=== PATIENT | female | born 1970 | race Caucasian/White ===

== ENCOUNTER 2025-05-02 10:46 | Emergency (ER) | payer BC, SELFPAY ==
[2025-05-02 10:52] VITALS: BP 155/94
[2025-05-02 11:05] LABS: % Basophils 0.6 % (0-2); % Immature Granulocytes 0.5 % (0-0.5); % Lymphocytes 27.3 % (20.5-51.1); % Monocytes 5.8 % (1.7-9.3); % Neutrophils 63.8 % (42.2-75.2); Absolute Eosinophils 0.1 10^3/uL (0-0.7); Absolute Lymphocytes 1.8 10^3/uL (1.2-3.4); Absolute Monocytes 0.4 10^3/uL (0.1-0.6); Absolute Neutrophils 4.2 10^3/uL (1.4-6.5); Hematocrit 39.8 % (37.0-47.0); Hemoglobin 13.2 g/dL (12.0-16.0); Mean Corp Hgb Conc. 33.2 g/dL (33.0-37.0); Mean Corpuscular Hgb 30.2 pg (27.0-31.0); Mean Corpuscular Volume 91.1 fL (81.0-99.0); Mean Platelet Volume 11.2 fL (7.4-10.4); Nucleated Red Blood Cells % 0 %; Platelet Count 222 10^3/uL (130-400); Red Blood Cell Count 4.37 10^6/uL (4.20-5.40); Red Cell Dist. Width 13.2 % (11.5-14.5); White Blood Cell Count 6.5 10^3/uL (4.8-10.8)
[2025-05-02 11:23] LABS: ALT (SGPT) 32 U/L (0-35); AST (SGOT) 19 U/L (14-36); Albumin 4.4 g/dl (3.5-5.0); Alkaline Phosphatase 63 U/L (38-126); Blood Urea Nitrogen 16 mg/dl (7-17); Calcium 9.5 mg/dl (8.4-10.2); Carbon Dioxide 28 mmol/L (22-30); Chloride 110 mmol/L (98-107); Glucose 121 mg/dl (70-99); Potassium 4.1 mmol/L (3.5-5.1); Sodium 144 mmol/L (135-145); Total Bilirubin 0.6 mg/dl (0.2-1.3); Total Protein 7.4 g/dl (6.3-8.2); eGFR > 60.00
[2025-05-02 11:35] LABS: Troponin I < 0.012 ng/ml
--- NOTE | 2025-05-02 11:45 | ED.GENMED ---
History of Present Illness
General
Chief Complaint: Chest Pain
Source: patient
Exam Limitations: none
Time Seen by Provider: 05/02/25 11:44
Nursing documentation reviewed up to this point in time: agreed with
History of Present Illness
History of Present Illness:
54-year-old female with no clinically significant past medical history presents for intermittent fleeting left upper chest pains since yesterday morning. It is not there now. It is fleeting and lasts for only seconds. No associated symptoms such
as lightheadedness, shortness of breath, sweating, nausea. No significant family history of cardiac disease
Past History
Past History
ED Past Medical History: None
ED Past Surgical History: Gynecological
Social History
Tobacco: Non-smoker
Alcohol: Occasional
Personal:
Living: with family
Employment: Employed
Review of Systems
Review of Systems
Allergies reviewed?: Yes
All Other Systems: ROS reviewed and negative except as documented in HPI and ROS
Constitutional: Denies fever or fatigue
Respiratory: Denies cough or trouble breathing
Cardiac: Reports chest pain; Denies diaphoresis or palpitations
ABD/GI: Denies abdominal pain, nausea, vomiting or diarrhea
: Denies dysuria
Musculoskeletal: Reports no symptoms
Skin: Reports no symptoms
Neurological: Reports no symptoms
Phy Exam
Physical Exam
Physical Exam:
GENERAL: No acute distress. A&Ox3.
CONSTITUTIONAL: Afebrile.
EYES: clear, conjunctivae normal
ENMT: moist mucus membranes, Pharynx nl
RESPIRATORY: Regular respirations, nonlabored, lungs clear.
CARDIOVASCULAR: Regular rate and rhythm, no murmurs, no rubs.
GI: Soft, nontender, normal BS
MUSCULOSKELETAL: Unable to reproduce pain with palpation. Moves with ease. Well perfused.
SKIN: Warm, dry, pink
PSYCH: Normal mood and affect. Well kept, interactive and appropriate
NEUROLOGIC: Awake, alert and oriented. No focal neurological deficits
Scores
Heart Score for Chest Pain Patients
STEMI patient?: Not applicable
Course
Orders/Labs/Results
Orders:
Orders
05/02/25 10:46
EKG [Electrocardiogram (*1)] Urgent
Reason for Study: Chest Pain
05/02/25 10:47
EKG- Treatment ONCE
05/02/25 10:57
Complete Blood Count/With Diff Urgent
Comprehensive Metabolic Panel Urgent
Troponin I Urgent
05/02/25 11:56
CR Chest - 2 Views Urgent
Comment:
Reason For Exam: chest pain
Abnormal Lab Results
05/02/25
10:57
MPV 11.2 H fL
(7.4-10.4)
Chloride 110 H mmol/L
(98-107)
Glucose 121 H mg/dl
(70-99)
05/02/25 10:57
05/02/25 10:57
Vital Signs
Initial and Last Documented VS:
Initial Vital Signs
Temp Pulse Resp BP Pulse Ox
98.5 F 84 18 155/94 100
05/02/25 10:52 05/02/25 10:52 05/02/25 10:52 05/02/25 10:52 05/02/25 10:52
Last Documented Vital Signs
Temp Pulse Resp BP Pulse Ox
98.5 F 75 13 141/76 98
05/02/25 10:52 05/02/25 12:45 05/02/25 12:30 05/02/25 12:04 05/02/25 12:45
MDM/Problems Addressed
Differential Diagnosis Includes:
Musculoskeletal pain, pleuritis, ACS
MDM/Problems Addressed:
54-year-old female with no clinically significant past medical history presents for intermittent fleeting left upper chest pains since yesterday morning. It is not there now. It is fleeting and lasts for only seconds. No associated symptoms such
as lightheadedness, shortness of breath, sweating, nausea. No significant family history of cardiac disease
12:00 PM:
CBC normal
CMP normal
Troponin normal
EKG NSR
No indication of cardiac etiology of pain. I will send her information to the cardiac hotline
CXR: NAD
*Radiology
Radiology exam reviewed: preliminary read by ED provider (MIKE)
*EKG
Interpreted by ED Provider?: Yes
EKG Intrepretation Date: 05/02/25
Interpretation: normal
Heart Rate: 77
Rate: normal
Rhythm: sinus
Odin: normal axis
Interval: normal interval
QRS Pattern: normal QRS
Ischemia: no ischemia
*Critical Care Note
Total Time (30-74mins, 75-104mins- exclusive of procedures): Not Applicable
ED Attending Note
-
Portions of this chart may have been created with voice recognition software.� Occasional wrong word or��sound alike� substitutions may have occurred due to the inherent limitations of voice recognition software.
Discharge Plan
Departure
Patient Disposition: Home (Routine Discharge)
Date of Disposition: 05/02/25
Time of Disposition: 12:58
Patient with high blood pressure during this ER visit?: No
Condition: Good
Discharge Problem:
Atypical chest pain
Instructions: Chest Pain That Is Not Caused by the Heart (DC), Chest Pain CBC Follow Up
Referrals:
Emilia Nguyen DO [Family Provider, Internal Medicine]
Activity Restrictions/Additional Instructions:
As we discussed, nothing worrisome in your workup here today.
Someone from the cardiac group should call you to make an appointment for a more thorough cardiac evaluation.
Return immediately for chest pain associate with shortness of breath, feeling faint, breaking out in a sweat, nausea or feeling sicker in any way.
Interventions
Interventions:
*Risk Screen - Suicide Last Done: 05/02/25 12:05
*General Assessment Last Done: 05/02/25 10:53
*Neglect/Abuse Screening Last Done: 05/02/25 10:53
*ED- Fall Risk Assessment Last Done: 05/02/25 12:05
*ED COVID-19 Vaccine History Last Done: 05/02/25 12:05
*Nursing Disposition Last Done: 05/02/25 13:18
ED- Cardiac Assessment Last Done: 05/02/25 12:05
Discharge Date and Time
Discharge Date/Time: 05/02/25 13:19
Print Language: WELSH
[2025-05-02 11:48] VITALS: BP 136/84
[2025-05-02 12:00] VITALS: BP 133/73
[2025-05-02 12:04] VITALS: BP 141/76
== END 2025-05-02 13:19 | disposition home or self-care (01) ==
LOC: EMR 10:46
PROVIDERS: EMERGENCY PHYSICIAN Emergency Medicine; FAMILY PHYSICIAN Internal Medicine
DX: R07.89 Other chest pain (principal)
CPT/HCPCS: 99285; 71046; 80053; 84484; 85025; 93005

== ENCOUNTER → 2025-05-27 08:07 | Outpatient (REF) | payer BC, SELFPAY | LOC: HWRCS 08:07 | PROVIDERS: ATTENDING PHYSICIAN Internal Medicine Cardiovascular Disease; FAMILY PHYSICIAN Internal Medicine | DX: R07.9 Chest pain, unspecified (principal); R03.0 Elevated blood-pressure reading, without diagnosis of hypertension | CPT/HCPCS: 93306 ==